=== PATIENT | female | born 1995 | race Caucasian/White ===

== ENCOUNTER 2021-03-21 16:37 | Emergency (ER) | payer OTHER ==
[~2021-03-21] VITALS: Ht 160 cm; Wt 70.0 kg
[2021-03-21 17:13] LABS: BASOPHILS # (AUTO) 0.1 10^3/uL (0.0-0.1); BASOPHILS % (AUTO) 0 % (0-10); EOSINOPHILS # (AUTO) 0.4 10^3/uL (0.0-0.3); EOSINOPHILS % (AUTO) 3 % (0-10); HEMATOCRIT 43 % (35-52); HEMOGLOBIN 14.3 g/dL (11.5-16.0); LYMPHOCYTES # (AUTO) 2.6 10^3/uL (1.0-4.0); LYMPHOCYTES % (AUTO) 23 % (12-44); MEAN CORPUSCULAR HEMOGLOBIN 29 pg (25-34); MEAN CORPUSCULAR HGB CONC 33 g/dL (32-36); MEAN CORPUSCULAR VOLUME 86 fL (80-99); MEAN PLATELET VOLUME 10.6 fL (9.0-12.2); MONOCYTES % (AUTO) 9 % (0-12); NEUTROPHILS # (AUTO) 7.2 10^3/uL (1.8-7.8); NEUTROPHILS % (AUTO) 64 % (42-75); PLATELET COUNT 330 10^3/uL (130-400); WHITE BLOOD COUNT 11.3 10^3/uL (4.3-11.0)
[2021-03-21 17:28] LABS: PROTHROMBIN TIME PATIENT 13.2 SEC (12.2-14.7)
[2021-03-21 17:29] LABS: ALBUMIN 4.2 GM/DL (3.2-4.5); POTASSIUM 3.9 MMOL/L (3.6-5.0)
[2021-03-21] MEDS ORDERED: KETOROLAC 30 MG/ML VIAL IVP ONE (17:30)
--- NOTE | 2021-03-21 17:30 | ED Cough/URI ---
General Chief Complaint: COVID19 Suspect/Confirmed Stated Complaint: FEVER,COUGH,BODY ACHES Nursing Triage Note: ARRIVED VIA AMB TO ROOM 10. FEVER AND BOD ACHES FOR SEVERAL DAYS. NEG COVID ON TUESDAY. Source: patient Exam Limitations: no limitations (JULISSA HUFF MD) History of Present Illness Date Seen by Provider: Mar 21, 2021 Time Seen by Provider: 17:15 Initial Comments Patient is a 26-year-old who presents to the emergency department with a chief complaint of fever, all over body aches, cough, sinus congestion, mild headache a little bit of nausea. Patient states she had initially onset of symptoms about a month ago, went to her primary care physician's office and was tested for "everything". She had mono test, flu, Covid, basic labs and chest x-ray. Actually got a little bit better the week or 2 after but then symptoms recurred again. Over the last for 5 days she has had significant worsening. States she is "sleeping all the time". Fairly decent appetite, able to hold down fluids. No dysuria urgency or frequency, abnormal vaginal discharge. No diarrhea, black or bloody stools. No recent tick bites or mosquito bites. Rashes. No joint swelling. No sore throat, status post tonsillectomy at the age of 1. Alternating Tylenol and ibuprofen for symptoms and taking "severe sinus" med ication [id number]. 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 States that she has had significant contact with Covid positive persons. All other review of systems reviewed and negative except as stated. Timing/Duration: getting worse Severity/Quality: dry cough Prior Episodes/Possible Cause: illness exposure Modifying Factors: Improves With Coughing Associated Symptoms: cough, fever/chills, lightheadedness, muscle aches, nasal congestion, nasal drainage (JULISSA HUFF MD) Allergies and Home Medications Allergies Coded Allergies: Penicillins (Verified Allergy, Unknown, 03/21/21) codeine (Verified Allergy, Unknown, 03/21/21) Patient Home Medication List Home Medication List Reviewed: Yes (JULISSA HUFF MD) Cefdinir (Cefdinir) 300 Mg Capsule, 300 MG PO BID Prescribed by: SHARON RUTH on 03/21/21 183 Review of Systems Review of Systems Constitutional: see HPI EENTM: nose congestion Respiratory: cough, phlegm (slight) Cardiovascular: no symptoms reported Gastrointestinal: nausea (for 2 days - resolved now) Genitourinary: no symptoms reported : No Musculoskeletal: joint pain, muscle cramps Skin: no symptoms reported Psychiatric/Neurological: Anxiety (JULISSA HUFF MD) All Other Systems Reviewed Negative Unless Noted: Yes (JULISSA HUFF MD) Past Inrhbcb-[id number]-[id number] Hx Patient Social History Tobacco Use?: No Smoking Status: Never a Smoker Substance use?: No Alcohol Use?: No (JULISSA HUFF MD) Physical Exam Vital Signs - First Documented 03/21/21 16:45 Temp 36.7 Pulse 128 Resp 16 Pulse Ox 98 O2 Delivery Room Air (SHARON RUTH DO) Capillary Refill : Less Than 3 Seconds (JULISSA HUFF MD) Height: '" Weight: lbs. oz. kg; 27.00 BMI Method: General Appearance: WD/WN, no apparent distress Eyes: Bilateral Eye Normal Inspection, Bilateral Eye PERRL, Bilateral Eye EOMI HEENT: PERRL/EOMI, normal ENT inspection, TMs normal, pharynx normal Neck: non-tender, full range of motion, supple, normal inspection Respiratory: lungs clear, normal breath sounds, no respiratory distress, no accessory muscle use Cardiovascular: regular rate, rhythm, tachycardia (105-115) Gastrointestinal: normal bowel sounds, non tender, soft, no organomegaly Extremities: normal range of motion, non-tender, normal inspection, no pedal edema, no calf tenderness, normal capillary refill Neurologic/Psychiatric: no motor/sensory deficits, alert, normal mood/affect, oriented x 3 Skin: normal color, warm/dry (JULISSA HUFF MD) Focused Exam Lactate Level 03/21/21 16:55: Lactic Acid Level 1.50 (SHARON RUTH DO) Lactic Acid Level Laboratory Tests Test 03/21/21 16:55 Lactic Acid Level 1.50 MMOL/L (0.50-2.00) (SHARON RUTH DO) Progress/Results/Core Measures Suspected Sepsis SIRS Temperature: Pulse: 128 Respiratory Rate: 16 Laboratory Tests 03/21/21 16:55: White Blood Count 11.3H Blood Pressure / Mean: 03/21/21 16:55: Lactic Acid Level 1.50 Laboratory Tests 03/21/21 16:55: Creatinine 0.79, INR Comment 1.0, Platelet Count 330, Total Bilirubin 0.4 (JULISSA HUFF MD) Results/Orders Lab Results Laboratory Tests Test 03/21/21 16:55 03/21/21 17:55 Range/Units White Blood Count 11.3 H 4.3-11.0 10^3/uL Red Blood Count 5.02 3.80-5.11 10^6/uL Hemoglobin 14.3 11.5-16.0 g/dL Hematocrit 43 35-52 % Mean Corpuscular Volume 86 80-99 fL Mean Corpuscular Hemoglobin 29 25-34 pg Mean Corpuscular Hemoglobin Concent 33 32-36 g/dL Red Cell Distribution Width 12.5 10.0-14.5 % Platelet Count 330 130-400 10^3/uL Mean Platelet Volume 10.6 9.0-12.2 fL Immature Granulocyte % (Auto) 1 % Neutrophils (%) (Auto) 64 42-75 % Lymphocytes (%) (Auto) 23 12-44 % Monocytes (%) (Auto) 9 0-12 % Eosinophils (%) (Auto) 3 0-10 % Basophils (%) (Auto) 0 0-10 % Neutrophils # (Auto) 7.2 1.8-7.8 10^3/uL Lymphocytes # (Auto) 2.6 1.0-4.0 10^3/uL Monocytes # (Auto) 1.0 0.0-1.0 10^3/uL Eosinophils # (Auto) 0.4 H 0.0-0.3 10^3/uL Basophils # (Auto) 0.1 0.0-0.1 10^3/uL Immature Granulocyte # (Auto) 0.1 0.0-0.1 10^3/uL Prothrombin Time 13.2 12.2-14.7 SEC INR Comment 1.0 0.8-1.4 Activated Partial Thromboplast Time 28 24-35 SEC Sodium Level 138 135-145 MMOL/L Potassium Level 3.9 3.6-5.0 MMOL/L Chloride Level 104 98-107 MMOL/L Carbon Dioxide Level 23 21-32 MMOL/L Anion Gap 11 5-14 MMOL/L Blood Urea Nitrogen 10 7-18 MG/DL Creatinine 0.79 0.60-1.30 MG/DL Estimat Glomerular Filtration Rate 87 BUN/Creatinine Ratio 13 Glucose Level 103 70-105 MG/DL Lactic Acid Level 1.50 0.50-2.00 MMOL/L Calcium Level 9.8 8.5-10.1 MG/DL Corrected Calcium 9.6 8.5-10.1 MG/DL Total Bilirubin 0.4 0.1-1.0 MG/DL Aspartate Amino Transf (AST/SGOT) 28 5-34 U/L Alanine Aminotransferase (ALT/SGPT) 35 0-55 U/L Alkaline Phosphatase 123 40-136 U/L C-Reactive Protein High Sensitivity 2.15 H 0.00-0.50 MG/DL Total Protein 8.4 H 6.4-8.2 GM/DL Albumin 4.2 3.2-4.5 GM/DL Serum Test, Qualitative NEGATIVE NEGATIVE Influenza Type A (RT-PCR) Not Detected Not Detecte Influenza Type B (RT-PCR) Not Detected Not Detecte SARS-CoV-2 RNA (RT-PCR) Not Detected Not Detecte Urine Color YELLOW Urine Clarity SL CLOUDY Urine pH 6.5 5-9 Urine Specific [place] 1.025 H 1.016-1.022 Urine Protein NEGATIVE NEGATIVE Urine Glucose (UA) NEGATIVE NEGATIVE Urine Ketones NEGATIVE NEGATIVE Urine Nitrite NEGATIVE NEGATIVE Urine Bilirubin NEGATIVE NEGATIVE Urine Urobilinogen 1.0 < = 1.0 MG/DL Urine Leukocyte Esterase 2+ H NEGATIVE Urine RBC (Auto) 2+ H NEGATIVE Urine RBC 5-10 H /HPF Urine WBC 10-25 H /HPF Urine Squamous Epithelial Cells 0-2 /HPF Urine Crystals NONE /LPF Urine Bacteria FEW H /HPF Urine Casts NONE /LPF Urine Mucus MODERATE H /LPF Urine Culture Indicated CULTURE PENDING (KURTSHARON K DO) Medications Given in ED Current Medications Medications Dose Ordered Sig/Jamilah Route Start Time Stop Time Status Last Admin Dose Admin Ketorolac Tromethamine 15 mg ONCE ONCE IVP 03/21/21 17:30 03/21/21 17:31 DC 03/21/21 17:58 15 MG (KURT,SHARON K DO) Vital Signs/I&O 03/21/21 16:45 Temp 36.7 Pulse 128 Resp 16 B/P (MAP) Pulse Ox 98 O2 Delivery Room Air (KURT,SHARON K DO) Vital Signs/I&O Capillary Refill : Less Than 3 Seconds (JULISSA HUFF MD) Progress Note : Time: 17:41 Progress Note care passed to Dr Ruth at shift change with studies pending (JULISSA HUFF MD) Progress Note : Progress Note 1800--ASSUMED CARE FROM DR. HUFF, CXR AND UA PENDING. PT DOES NOT APPEAR TO BE ILL OR IN ANY DISCOMFORT OR DISTRESS. SMILING AND TALKING WITH FEMALE IN ROOM, BOTH ON ER CART AND LOOKING AT SOMETHING ON CELL PHONE. NO COUGH, NO DYSPNEA, NO HYPOXIA, NO FEVER. PT HAS RECEIVED A LITER OF FLUIDS AND HEART RATE IS DOWN (SHARON RUTH DO) Diagnostic Imaging Comments CXR--PER RADIOLOGIST REPORT AT 1802 FINDINGS: Heart size and pulmonary vasculature are within normal limits, and the lungs are clear, bilaterally. IMPRESSION: Unremarkable chest. Reviewed: Reviewed by Me (SHARON RUTH DO) Departure Impression Primary Impression: Upper respiratory infection Additional Impression: UTI (urinary tract infection) Disposition: HOME, SELF-CARE Condition: Stable Departure-Patient Inst. Decision time for Depature: 18:30 (SHARON RUTH DO) Referrals: MAMTA BULLOCK MD (PCP) Primary Care Physician RADHA SMILEY APRN (Family) Primary Care Physician Patient Instructions: Upper Respiratory Infection ED, Urinary Tract Infection, Adult (DC) Add. Discharge Instructions: INCREASE YOUR FLUID INTAKE--WATER, BROTH, JELLO, GATORADE--DRINK ENOUGH SO YOU ARE URINATING EVERY 2-3 HOURS WHILE AWAKE TYLENOL 1 GRAM/ MOTRIN 800 MG 4 TIMES A DAY FOR PAIN OR FEVER OVER THE COUNTER MUCINEX DM NEEDED FOR COUGH AND CONGESTION FOLLOW UP WITH YOUR DR IN 3-4 DAYS IF NO BETTER, RETURN TO ER IF WORSE All discharge instructions reviewed with patient and/or family. Voiced understanding. Scripts Cefdinir (Cefdinir) 300 Mg Capsule 300 MG PO BID, #20 CAP Prov: SHARON RUTH DO 03/21/21 Work/School Note: Work Release Form Date Seen in the Emergency Department: Mar 21, 2021 Return to Work: Mar 23, 2021 JULISSA HUFF MD Mar 21, 2021 17:30 SHARON RUTH DO Mar 21, 2021 18:01
[2021-03-21 17:31] LABS: CALCIUM 9.8 MG/DL (8.5-10.1)
[2021-03-21 17:32] LABS: TOTAL PROTEIN 8.4 GM/DL (6.4-8.2)
[2021-03-21 17:34] LABS: BILIRUBIN,TOTAL 0.4 MG/DL (0.1-1.0)
[2021-03-21 17:35] LABS: CREATININE SERUM 0.79 MG/DL (0.60-1.30)
[2021-03-21] MEDS ORDERED: NS IV 1000 ML 1,000 ML IV SCH (18:00)
--- NOTE | 2021-03-21 18:01 | Diagnostic Imaging Report ---
INDICATION: Body aches and fever. EXAMINATION: Single AP view of the chest was obtained. COMPARISON: No previous study is available for comparison at this time. FINDINGS: Heart size and pulmonary vasculature are within normal limits, and the lungs are clear, bilaterally. IMPRESSION: Unremarkable chest. Dictated by: Dictated on workstation # [id number]
[2021-03-21 18:10] LABS: BILIRUBIN,URINE NEGATIVE (NEGATIVE); CLARITY,URINE SL CLOUDY; COLOR,URINE YELLOW; GLUCOSE, URINE (UA) NEGATIVE (NEGATIVE); KETONES,URINE NEGATIVE (NEGATIVE); LEUKOCYTE ESTERASE ,URINE 2+ (NEGATIVE); NITRITE,URINE NEGATIVE (NEGATIVE); PH,URINE 6.5 (5-9); PROTEIN,URINE NEGATIVE (NEGATIVE)
[2021-03-21 18:21] LABS: BACTERIA,URINE FEW /HPF; SQUAMOUS EPITHELIAL CELL,UR 0-2 /HPF
[2021-03-21] MEDS ORDERED: CEFD300C3 PO (18:31)
[2021-03-21 18:40] VITALS: BP 123/73
[2021-03-21] MEDS ORDERED: CEFDINIR 300 MG (OMNICEF) CAP PO ONE (18:45)
== END 2021-03-21 18:40 | disposition home or self-care (01) ==
LOC: ER 16:42
DX: J06.9 Acute upper respiratory infection, unspecified (principal); N39.0 Urinary tract infection, site not specified; Z20.822 Contact with and (suspected) exposure to COVID-19
CPT/HCPCS: 36415; 71045; 80053; 81000; 83605; 84703; 85025; 85610; 85730; 86141; 87040; 87088; 87636